=== PATIENT | female | born 1985 | race Caucasian/White ===

== ENCOUNTER 2025-04-09 20:37 | Observation (INO) ==
--- NOTE | 2025-04-09 21:45 | DR.HEADACH ---
HPI Time Seen Time Seen by Provider: 04/09/25 21:42 Primary Care Physician Primary Care Physician: ANNIE DOBBS HPI Comment HPI Comment: According to pt she has hx of high blood pressure. it's never below 140.takes clonidine 2x per day and labetalol once daily. Noticed numbness and tingling over right side of face and right upper ext started 1 hr ago .Has no weakness over the upper and lower ext .Here to have her checked to make sure she does not have stroke/tia Complaint/Symptoms Chief Complaint Doctors Comments: numbness over the face and right upper ext Chief Complaint:: PT AMBULATORY IN ED WITH C/O SEVERE HEADACHE SINCE LAST NIGHT AND VOMITING TODAY. STATES SHE HAD AN EPISODE OF NUMBNESS AND TINGLING ON RIGHT SIDE TODAY. COVID-19 Coronavirus risk:travel/contact w/high risk person: No Has patient experienced Coronavirus symptoms: No Reviewed Nurses Notes Reviewed: Yes Source History Provided: Patient Mode of Arrival Mode of Arrival: Ambulatory Timing Onset of Chief Complaint: 04/08/25 Duration Since Onset: Since Onset How lon Duration: Hours Location Headache Location: Temporal Quality Quality: Aching Severity Headache Severity: Moderate Context History of: None Prior Work Up: None Modifying Factors Improves With: Nothing Worsens: Nothing Associated Signs and Symptoms Associated Symptoms: None PMH PMH Past Medical History: Yes Past Medical History: Depression, Diabetes, Dyslipidemia, Migraines, GERD, Headaches, Hypertension, Hypothyroidism, Kidney Stones and Cancer Past Medical History Comment: KIDNEY CANCER Past Surgical History: Yes Surgical History: , RIGHT OF WAY MAN Surgery, Hysterectomy and Lithotripsy Past Surgical History Comment: RIGHT NEPHRECTOMY Family History History of Family Medical Conditions: Yes Family Medical History: Diabetes Mellitus, Cancer, CA, Coronary Artery Disease and Hypertension Social History Does patient currently use any type of tobacco product: No Have you used tobacco products in the last 12 months: No Type of Tobacco Use: None Does any household member use tobacco: No Alcohol Use: None Do you use any recreational Drugs:: No Lives With: Spouse Lives Where: Home Travel Risk Coronavirus risk:travel/contact w/high risk person: No Has patient experienced Coronavirus symptoms: No Infectious screening In the last 2 months have you had wt loss of >10#?: NO Have you had fever, night sweats or hemotysis?: No Have you traveled outside the country in the last 6 months?: No Isolation: Standard ROS Review of Systems Constitutional: No Symptoms Reported Eyes: No Symptoms Reported ENTM: No Symptoms Reported Respiratoy: No Symptoms Reported Cardiovascular: No Symptoms Reported Gastrointestinal/Abdominal: No Symptoms Reported Genitourinary: No Symptoms Reported Neurological: Headache, Paresthesia and Tingling Musculoskeletal: No Symptoms Reported Integumentary: No Symptoms Reported Hematologic/Lymphatic: No Symptoms Reported Endocrine: No Symptoms Reported PE Vital Signs Vitals: Vital Signs Temperature 98.2 F Pulse Rate 96 Respiratory Rate 19 Respiratory Rate 20 Blood Pressure 164/88 Blood Pressure 176/86 Blood Pressure 176/86 Blood Pressure 176/86 Blood Pressure 181/107 Blood Pressure 181/107 Blood Pressure 181/107 Blood Pressure 176/94 Blood Pressure 176/94 Blood Pressure 176/94 Blood Pressure 185/103 Blood Pressure 185/103 Blood Pressure 185/103 Blood Pressure 204/109 Blood Pressure 176/112 Blood Pressure 204/115 Blood Pressure 214/111 O2 Sat by Pulse Oximetry 98 Head Head Exam: Normal Inspection, Atraumatic and Normocephalic Eyes Eye exam: Normal Appearance, PERRL and EOMI ENT ENT Exam: Mucous Membranes Moist TM/Canal Exam: Bilateral: Normal Mouth Exam: Normal Inspection Neck Neck Exam: Normal Inspection, Full ROM and Trachea Midline Chest Chest Inspection: Normal Inspection and Symmetric Chest Wall Rise Respiratory Respiratory Exam: Normal Lung Sounds Bilat Respiratory Exam: Bilateral: Clear to Auscultation Cardiovascular Cardiovascular Exam: +S1 and +S2 Abdominal Exam Abdominal Exam: Normal Inspection, Normal Bowel Sounds and Soft Extremities Extremities Exam: Normal Inspection and Full ROM Other Exam Other Exam: cn 2-12 intact upper and lower ext tone and power symmterical reflexes 2+ plantar flexor bilaterally MDM Additional Information Obtained Additional Information Obtained From: Old Records Differential Diagnosis Differential Diagnosis: Considerations may include:: Other (tia,hypertensive Urgency ,headache ) COURSE Treatment Treatment: start stroke protocol ROR Labs Reviewed Laboratory Results Reviewed?: Yes 04/09/25 21:27 04/09/25 21:57 Laboratory: WBC 10.2 X10^3/uL (3.6-10.0) H 04/09/25 21:27 RBC 4.79 X10^6/uL (3.5-5.4) 04/09/25 21:27 Hgb 13.4 g/dL (12.0-16.0) 04/09/25 21:27 Hct 39.3 % (36.0-47.0) 04/09/25 21: MCV 82.1 fL (80.0-100.0) 04/09/25: MCH 28.1 pg (27.0-34.0) 04/09/25: MCHC 34.2 g/dL (33.0-35.0) 04/09/25: RDW 14.4 % (11.6-16.5) 04/09/25: Plt Count 327 X10^3/uL (150.0-450.0) 04/09/25 21: MPV 7.7 fL (7.4-11.0) 04/09/25: Neut % (Auto) 69.8 % (42.0-75.0) 04/09/25: Lymph % (Auto) 21.1 % (21.0-51.0) 04/09/25: [place] % (Auto) 6.6 % (0.0-13.0) 04/09/25: Eos % (Auto) 1.9 % (0.9-2.9) 04/09/25: Baso % (Auto) 0.6 % (0.2-1.0) 04/09/25: Neut # (Auto) 7.1 x10^3/uL (2.2-4.8) H 04/09/25: Lymph # (Auto) 2.2 X10^3/uL (1.3-2.9) 04/09/25: [place] # (Auto) 0.7 x10^3/uL (0.3-0.8) 04/09/25: Eos # (Auto) 0.2 x10^3/uL (0.0-0.2) 04/09/25: Baso # (Auto) 0.1 X10^3/uL (0.0-0.1) 04/09/25: Absolute Nucleated RBC 0.0 /100WBC 04/09/25: PT 13.3 SECONDS (11.8-14.3) 04/09/25: INR Target Range - 04/09/25 21: INR 1.00 (0.8-1.3) 04/09/25 21:27 APTT 25.1 SECONDS (22.9-36.5) 04/09/25 21:27 PTT Comment - 04/09/25 21:27 Fibrinogen 352 mg/dL (239-489) 04/09/25 21:27 Sodium 140 mmol/L (136-145) 04/09/25 21:57 Corrected Sodium 140 mmol/L (136-145) 04/09/25 21:57 Potassium 4.2 mmol/L (3.5-5.1) 04/09/25 21:57 Chloride 104 mmol/L (98-107) 04/09/25 21:57 Carbon Dioxide 28.0 mmol/L (21-32) 04/09/25 21:57 BUN 18 mg/dL (7-18) 04/09/25 21:57 Creatinine 1.16 mg/dL (0.55-1.02) H 04/09/25 21:57 Est GFR (MDRD) Af Amer > 60 (>60) 04/09/25 21:57 Est GFR (MDRD) Non-Af 55 (>60) L 04/09/25 21:57 Glucose 114 mg/dL (65-99) H 04/09/25 21:57 Calcium 8.8 mg/dL (8.5-10.1) 04/09/25 21:57 Corrected Calcium TNP 04/09/25 21:57 Total Bilirubin 0.40 mg/dL (0.2-1.0) 04/09/25 21:57 AST 11 Units/L (15-37) L 04/09/25 21:57 ALT 22 Units/L (12-78) 04/09/25 21:57 Alkaline Phosphatase 92 Units/L (46-116) 04/09/25 21:57 Creatine Kinase 50 Units/L (26-192) 04/09/25 21:57 Troponin I High Sens 7.0 ng/L (4.0-60.0) 04/09/25 21:57 Total Protein 8.0 g/dL (6.4-8.2) 04/09/25 21:57 Albumin 4.0 g/dL (3.4-5.0) 04/09/25 21:57 Globulin 4.0 g/dL (2.5-4.5) 04/09/25 21:57 Albumin/Globulin Ratio 1.0 Ratio (1.1-2.1) L 04/09/25 21:57 Triglycerides 223 mg/dL (0-150) H 04/09/25 21:57 Cholesterol 245 mg/dL (0-200) H 04/09/25 21:57 LDL Cholesterol, Calc 160 mg/dL (0-100) H 04/09/25 21:57 HDL Cholesterol 40 mg/dL (40-60) 04/09/25 21:57 Cholesterol/HDL Ratio 6.1 (0.0-5.0) H 04/09/25 21:57 Blood Type O POSITIVE 04/09/25 21:27 Blood Type O POSITIVE 04/09/25 21:27 Antibody Screen Negative 04/09/25 21:27 Opioid Opioid Risk Tool Age (Hardik box if 16-45): Yes History of Preadolescent Sexual Abuse: No Total: 1 Total Score Risk Category: Low Risk Copyright: [facility] predicting aberrant behaviors Discharge Plan Diagnosis Discharge Problem: Brain TIA, Hypertensive urgency, Headache, migraine Discharge Plan Patient Disposition: 09 ADMITTED INPATIENT Condition: Stable Prescriptions: No Action venlafaxine 150 mg capsule,extended release 24hr 150 mg PO QDAY labetalol 100 mg Tablet 100 mg PO BID Ozempic 1 mg/dose (4 mg/3 mL) Pen Injector 1 mg SUBCUT QWEEK Rx Instructions: TAKES ON THURSDAY clonidine HCl 0.1 mg Tablet 0.1 mg PO BID Health Concerns: Post Hospitalization: new medications and changes needed to prevent readmission or further decline. Pt educated and given instructions on all concerns. Plan of Treatment: Continue with present treatment and follow up plan. Pt is to keep follow up appointment as instructed and take medications as ordered. Orders to Discharge Patient Discharge Orders: Transfer (Routine); Ordered 04/09/25 Ordered By: Crow Peoples Follow ups/Referrals Follow ups/Referrals: Annie Dobbs [Primary Care Provider, Unknown] - 3 days Instructions Stand Alone Forms: Find Help Web Site, Post Hospital Follow Up Care Print Language: [place] ADDITIONAL NOTES Additional Notes Additional Notes: spoke with Dr Michel Neuro .CT neg CTA no acute finding.headache improved .bp less than 200 systolic after hydralazine systolic .Spoke with Dr Verdin agreed to have patient admitted fro monitoring over night bp ,MRI in am
[2025-04-09 21:56] LABS: BASOPHILS # (AUTO) 0.1 X10^3/uL (0.0-0.1); BASOPHILS % (AUTO) 0.6 % (0.2-1.0); EOSINOPHILS # (AUTO) 0.2 x10^3/uL (0.0-0.2); EOSINOPHILS % (AUTO) 1.9 % (0.9-2.9); HEMATOCRIT 39.3 % (36.0-47.0); HEMOGLOBIN 13.4 g/dL (12.0-16.0); LYMPHOCYTES # (AUTO) 2.2 X10^3/uL (1.3-2.9); LYMPHOCYTES % (AUTO) 21.1 % (21.0-51.0); MEAN CORPUSCULAR HEMOGLOBIN 28.1 pg (27.0-34.0); MEAN CORPUSCULAR HGB CONC 34.2 g/dL (33.0-35.0); MEAN CORPUSCULAR VOLUME 82.1 fL (80.0-100.0); MEAN PLATELET VOLUME 7.7 fL (7.4-11.0); MONOCYTES # (AUTO) 0.7 x10^3/uL (0.3-0.8); MONOCYTES % (AUTO) 6.6 % (0.0-13.0); NEUTROPHILS # (AUTO) 7.1 x10^3/uL (2.2-4.8); NEUTROPHILS % (AUTO) 69.8 % (42.0-75.0); PLATELET COUNT 327 X10^3/uL (150.0-450.0); RED BLOOD COUNT 4.79 X10^6/uL (3.5-5.4); RED CELL DISTRIBUTION WIDTH 14.4 % (11.6-16.5); WHITE BLOOD COUNT 10.2 X10^3/uL (3.6-10.0)
[2025-04-09] MEDS: ZOFRAN INJ 4 MG VIAL IVP ONE (21:58)
[2025-04-09] MEDS: APRESOLINE INJ 20 MG VIAL IVP ONE (21:59)
--- NOTE | 2025-04-09 22:08 | EKG ---
Test Reason : headache high blood pressure Blood Pressure : */* mmHG Vent. Rate : 84 BPM Atrial Rate : 84 BPM P-R Int : 138 ms QRS Dur : 88 ms QT Int : 398 ms P-R-T Axes : 43 2 46 degrees QTc Int : 470 ms Normal sinus rhythm Minimal voltage criteria for LVH, may be normal variant ( R in aVL ) Cannot rule out Anterior infarct , age undetermined Abnormal ECG No previous ECGs available Confirmed by Jameel Costello MD ([id number]) on 04/10/2025 9:32:40 AM Referred By: Confirmed By: Jameel Costello MD
--- NOTE | 2025-04-09 22:13 | TELESTROKE ---
[facility] Consult Date of Consult Date of Exam: 04/09/25 Time of Arrival to the ED: 20:37 Allergies Allergies Allergy/AdvReac Type Severity Reaction Status Date / Time amoxicillin Allergy Verified 04/09/25 20:59 ampicillin Allergy Verified 04/09/25 20:59 diphenhydramine (From Allergy Verified 04/09/25 20:59 Benadryl) Penicillins Allergy Verified 04/09/25 20:59 Vital Signs Vital Signs: Temp Pulse Resp BP Pulse Ox O2 Del Method 04/09/25 21:30 204/115 04/09/25 20:38 98.2 F 96 H 20 214/111 98 Room Air History of Present Illness History of Present Illness: [facility] Patient Name:Yuliya Vasquez Date of :1985 Identification Number: Date of Service:04/09/2025 21:23:26 Diagnosis:R51.9 - Headache, unspecified R20.2 - Paresthesia of skin Impression: 40 yo female With history of hypertension, hyperlipidemia, kidney cancer status post kidney resection, history of migraines who had a headache since last night around midnight. She did report some associated nausea and vomiting. Subsequently about an hour prior to arriving here she began noting some numbness of her right face which seemed to spread to her right arm and right leg. She denies history of prior focal neurologic symptoms with her migraine. On examination, she reports diminished sensation of her right face and neglects her right face with double simultaneous stimulation. The remainder of her exam is nonfocal, NIHSS = 2. CT head reveals no bleed or acute abnormalities. No thrombolytic treatment felt to be indicated given minor, nondisabling symptoms. We will proceed with stat CTA of head and neck, and involve MERISSA if there is LVO. Suspect possible stroke mimic with complex migraine although as she has never had focal neurologic symptoms in the past with migraine, rule out stroke. Our recommendations are outlined below. Recommendations: Stroke/Telemetry Floor Neuro Checks (Q2) Bedside Swallow Eval DVT Prophylaxis IV Fluids, Normal Saline Head of Bed 30 Degrees Euglycemia and Avoid Hyperthermia (PRN Acetaminophen) Initiate or continue Aspirin 325 MG daily Antihypertensives PRN if Blood pressure is greater than 220/120 or there is a concern for End organ damage/contraindications for permissive HTN. If blood pressure is greater than 220/120 give labetalol PO or IV or Vasotec IV with a goal of 15% reduction in BP during the first 24 hours. Stroke risk factor modification Stroke education. Suggest MRI brain to evaluate for possible CVA Sign Out: Discussed with Emergency Department Provider Metrics: Last Known Well: 04/09/2025 19:30:00 Dispatch Time: 04/09/2025 21:23:26 Arrival Time: 04/09/2025 20:37:00 Initial Response Time: 04/09/2025 21:26:35Symptoms: BUTLER since last night midnight , vomiting . 1 hour ago right face then arm , leg . Initial patient interaction: 04/09/2025 21:29:24 NIHSS Assessment Completed: 04/09/2025 21:34:07Patient is not a candidate for Thrombolytic. Thrombolytic Medical Decision: 04/09/2025 21:34:07Patient was not deemed candidate for Thrombolytic because of following reasons: Stroke severity too mild (non-disabling) . CT Head: I personally reviewed all the CT images that were available to me and it showed: No bleed or acute abnormality Primary Provider Notified of Diagnostic Impression and Management Plan on: 04/09/2025 22:09:07 History of Present Illness:Patient is a 40 year old Female. Patient was brought by private transportation with symptoms of BUTLER since last night midnight , vomiting . 1 hour ago right face then arm , leg . 40 yo female With history of hypertension, hyperlipidemia, kidney cancer status post kidney resection, history of migraines who had a headache since last night around midnight. She did report some associated nausea and vomiting. Subsequently about an hour prior to arriving here she began noting some numbness of her right face which seemed to spread to her right arm and right leg. She denies history of prior focal neurologic symptoms with her migraine. Past Medical History: Hypertension Diabetes Mellitus Hyperlipidemia Migraine Headaches There is no history of Coronary Artery Disease There is no history of Stroke Other PMH: CKD, Kidney CA, Thyroid Medications: No Anticoagulant use No Antiplatelet use Reviewed EMR for current medications Other Medications Pertinent To Assessment Include: Clonidine, labetolol, cholesterrol med , Ozempic Allergies: Reviewed Description:PCN, Benadryl Social History: Smoking: No Alcohol Use: No Drug Use: No Family History: There Is Family History Of:CAD, HTN, Cancer There is no family history of premature cerebrovascular disease pertinent to this consultation ROS : 14 Points Review of Systems was performed and was negative except mentioned in HPI. Past Surgical History: There Is No Surgical History Contributory To Todays Visit Examination: BP(214/11),Pulse(96), 1A: Level of Consciousness - Alert; keenly responsive+ 0 1B: Ask Month and Age - Both Questions Right+ 0 1C: Blink Eyes & Squeeze Hands - Performs Both Tasks+ 0 2: Test Horizontal Extraocular Movements - Normal+ 0 3: Test Visual Roper - No Visual Loss+ 0 4: Test Facial Palsy (Use Grimace if Obtunded) - Normal symmetry+ 0 5A: Test Left Arm Motor Drift - No Drift for 10 Seconds+ 0 5B: Test Right Arm Motor Drift - No Drift for 10 Seconds+ 0 6A: Test Left Leg Motor Drift - No Drift for 5 Seconds+ 0 6B: Test Right Leg Motor Drift - No Drift for 5 Seconds+ 0 7: Test Limb Ataxia (FNF/Heel-Almaguer) - No Ataxia+ 0 8: Test Sensation - Mild-Moderate Loss: Less Sharp/More Dull+ 1 9: Test Language/Aphasia - Normal; No aphasia+ 0 10: Test Dysarthria - Normal+ 0 11: Test Extinction/Inattention - Visual/tactile/auditory/spatial/personal inattention+ 1 NIHSS Score:2 NIHSS Free Text :Right face feels numb, neglects right face to double simultaneous stimulation Pre-Morbid Modified [place] Scale:0 Points = No symptoms at all Spoke with :Dr Galicia This consult was conducted in real time using interactive audio and video technology. Patient was informed of the technology being used for this visit and agreed to proceed. Patient located in hospital and provider located at home/office setting. Patient is being evaluated for possible acute neurologic impairment and high probability of imminent or life-threatening deterioration. I spent total of 47 minutes providing care to this patient, including time for face to face visit via telemedicine, review of medical records, imaging studies and discussion of findings with providers, the patient and/or family. Dr Juan Michel [facility] For Inpatient follow-up with [facility] physician please call [facility] at . As we are not an outpatient service for any post hospital discharge needs please contact the hospital for assistance. If you have any questions for the [facility] physicians or need to reconsult for clinical or diagnostic changes please contact us via [facility] at . Medical Decision Making 04/09/25 21:27 04/09/25 21:57 Labs: Laboratory Results - last 24 hr 04/09/25 21:27 WBC 10.2 H RBC 4.79 Hgb 13.4 Hct 39.3 MCV 82.1 MCH 28.1 MCHC 34.2 RDW 14.4 Plt Count 327 MPV 7.7 Neut % (Auto) 69.8 Lymph % (Auto) 21.1 [place] % (Auto) 6.6 Eos % (Auto) 1.9 Baso % (Auto) 0.6 Neut # (Auto) 7.1 H Lymph # (Auto) 2.2 [place] # (Auto) 0.7 Eos # (Auto) 0.2 Baso # (Auto) 0.1 Absolute Nucleated RBC 0.0 PT 13.3 INR Target Range - INR 1.00 APTT 25.1 PTT Comment - Fibrinogen 352
[2025-04-09 22:20] LABS: ALANINE AMINOTRANSFERASE 22 Units/L (12-78); ALKALINE PHOSPHATASE 92 Units/L (46-116); ASPARTATE AMINO TRANSFERASE 11 Units/L (15-37); BLOOD UREA NITROGEN 18 mg/dL (7-18); CALCIUM 8.8 mg/dL (8.5-10.1); CHLORIDE 104 mmol/L (98-107); CHOL/HDL RATIO 6.1 (0.0-5.0); CHOLESTEROL 245 mg/dL (0-200); COR NA(FOR HYPERGLY) 140 mmol/L (136-145); CREATINE KINASE 50 Units/L (26-192); CREATININE 1.16 mg/dL (0.55-1.02); GLUCOSE 114 mg/dL (65-99); HDL CHOLESTEROL 40 mg/dL (40-60); POTASSIUM 4.2 mmol/L (3.5-5.1); SODIUM 140 mmol/L (136-145); TRIGLYCERIDES 223 mg/dL (0-150); eGFR NON BLACK RACES 55 (>60)
--- NOTE | 2025-04-09 22:20 | CT ---
EXAM: BRAIN W/O CON HISTORY: PT AMBULATORY IN ED WITH C/O SEVERE HEADACHE SINCE LAST NIGHT AND VOMITING TODAY. STATES SHE HAD AN EPISODE OF NUMBNESS AND TINGLING ON RIGHT SIDE TODAY.; COMPARISON: October 26, 2024 TECHNIQUE: Axial non-contrast images of the head with coronal and sagittal reformats. Radiation dose: 893.84 mGy-cm total DLP FINDINGS: No abnormal areas of acute attenuation in the brain parenchyma. Steiner-white differentiation remains intact. No intracranial, extra-axial, fluid collection. No hemorrhage. No mass, mass effect or midline shift. No ventriculomegaly. No acute fracture. Sinuses are well aerated. Mastoid air cells are well aerated. Globes and intraorbital contents are unremarkable. IMPRESSION: No acute intracranial abnormality identified. THIS IS AN ELECTRONICALLY VERIFIED FINAL REPORT 04/09/2025 10:05 PM - Electronically signed by Robinson Salinas MD
--- NOTE | 2025-04-09 22:56 | RAD ---
EXAM: CHEST, 1 VIEW HISTORY: PT AMBULATORY IN ED WITH C/O SEVERE HEADACHE SINCE LAST NIGHT AND VOMITING TODAY. STATES SHE HAD AN EPISODE OF NUMBNESS AND TINGLING ON RIGHT SIDE TODAY.; COMPARISON: No relevant prior studies available. TECHNIQUE: Chest radiographic imaging, AP portable projection, 1 image FINDINGS: Mild cardiomegaly. No focal airspace disease. No pleural effusion. No pneumothorax. No acute osseous abnormality. IMPRESSION: No imaging findings of acute cardiopulmonary disease. THIS IS AN ELECTRONICALLY VERIFIED FINAL REPORT 04/09/2025 10:52 PM - Electronically signed by Robinson Salinas MD
[2025-04-09] MEDS: TORADOL 30 MG VIAL IVP ONE (22:59)
--- NOTE | 2025-04-09 23:15 | CT ---
EXAM: BRAIN CTA HISTORY: PT AMBULATORY IN ED WITH C/O SEVERE HEADACHE SINCE LAST NIGHT AND VOMITING TODAY. STATES SHE HAD AN EPISODE OF NUMBNESS AND TINGLING ON RIGHT SIDE TODAY.; COMPARISON: Noncontrast head CT from April 09, 2025 TECHNIQUE: Axial CT angiography of the head with 100 mL Omnipaque 350 intravenous contrast. Coronal, sagittal and MIP and/or 3D reconstructed images were created for further characterization by the technologist. Radiation dose: 1623.58 mGy-cm total DLP FINDINGS: Anterior Circulation: Right internal carotid artery: No clinically significant stenosis, occlusion or aneurysm. Right middle cerebral artery: No clinically significant stenosis, occlusion or aneurysm. Right anterior cerebral artery: No clinically significant stenosis, occlusion or aneurysm. Left internal carotid artery: No clinically significant stenosis, occlusion or aneurysm. Left middle cerebral artery: No clinically significant stenosis, occlusion or aneurysm. Left anterior cerebral artery: No clinically significant stenosis, occlusion or aneurysm. Posterior Circulation: Right vertebral artery: No clinically significant stenosis, occlusion or aneurysm. Left vertebral artery: No clinically significant stenosis, occlusion or aneurysm. Basilar artery: No clinically significant stenosis, occlusion or aneurysm. Right posterior cerebral artery: No clinically significant stenosis, occlusion or aneurysm. Left posterior cerebral artery: No clinically significant stenosis, occlusion or aneurysm. Venous: No filling defects in the dural venous sinuses. Brain: No abnormal areas of acute attenuation in the brain parenchyma. Bones/joints: No acute osseous abnormality. Soft tissues: Unremarkable. IMPRESSION: 1. No acute intracranial abnormality identified, specifically, no clinically significant stenosis, occlusion or aneurysm identified involving the intracranial arterial structures. 2. No evidence of dural venous thrombosis. THIS IS AN ELECTRONICALLY VERIFIED FINAL REPORT 04/09/2025 11:12 PM - Electronically signed by Robinson Salinas MD
--- NOTE | 2025-04-09 23:20 | CT ---
EXAM: CAROTID CTA HISTORY: PT AMBULATORY IN ED WITH C/O SEVERE HEADACHE SINCE LAST NIGHT AND VOMITING TODAY. STATES SHE HAD AN EPISODE OF NUMBNESS AND TINGLING ON RIGHT SIDE TODAY.; COMPARISON: None. TECHNIQUE: Axial CT angiography of the neck with 100 mL Omnipaque intravenous contrast. Coronal, sagittal and MIP and/or 3D reconstructed images were created for further characterization by the technologist. Radiation dose: 1623.58 mGy-cm total DLP FINDINGS: Right common carotid artery: No clinically significant stenosis, occlusion or dissection. Right internal carotid artery: No clinically significant stenosis of the extracranial segment. No dissection or occlusion. Right external carotid artery: No occlusion or clinically significant stenosis of the origin. Right vertebral artery: No clinically significant stenosis, occlusion or dissection. Left common carotid artery: No clinically significant stenosis, occlusion or dissection.. Left internal carotid artery: No clinically significant stenosis of the extracranial segment. No dissection or occlusion. Left external carotid artery: No occlusion or clinically significant stenosis of the origin. Left vertebral artery: No clinically significant stenosis. No dissection or occlusion. Bones/joints: No acute fracture. Soft tissues: Normal. No significant soft tissue swelling. Lungs: Imaged portion of the lungs are clear of focal airspace disease. IMPRESSION: No acute abnormality, specifically, no clinically significant stenosis, occlusion or dissection involving the arterial structures of the neck. REFERENCES: NASCET CRITERIA: The degree of internal carotid artery stenosis is based on NASCET criteria. Normal is no stenosis. Mild is less than 50% stenosis. Moderate is 50-69% stenosis. Severe is 70% to 99% stenosis. Total occlusion is no detectable patent lumen. THIS IS AN ELECTRONICALLY VERIFIED FINAL REPORT 04/09/2025 11:16 PM - Electronically signed by Robinson Salinas MD
[2025-04-10 01:04] VITALS: BMI 30.1
[2025-04-10] MEDS: ZOFRAN INJ 4 MG VIAL IVP PRN (02:08)
[2025-04-10] MEDS: ULTRAM PO PRN (02:21)
[2025-04-10 05:57] LABS: BASOPHILS % (AUTO) 0.4 % (0.2-1.0); EOSINOPHILS % (AUTO) 0.5 % (0.9-2.9); HEMATOCRIT 38.4 % (36.0-47.0); HEMOGLOBIN 13.3 g/dL (12.0-16.0); LYMPHOCYTES # (AUTO) 1.9 X10^3/uL (1.3-2.9); LYMPHOCYTES % (AUTO) 19.3 % (21.0-51.0); MEAN CORPUSCULAR HEMOGLOBIN 28.1 pg (27.0-34.0); MEAN CORPUSCULAR HGB CONC 34.5 g/dL (33.0-35.0); MEAN CORPUSCULAR VOLUME 81.6 fL (80.0-100.0); MEAN PLATELET VOLUME 7.6 fL (7.4-11.0); MONOCYTES # (AUTO) 0.4 x10^3/uL (0.3-0.8); MONOCYTES % (AUTO) 4.5 % (0.0-13.0); NEUTROPHILS # (AUTO) 7.5 x10^3/uL (2.2-4.8); NEUTROPHILS % (AUTO) 75.3 % (42.0-75.0); PLATELET COUNT 342 X10^3/uL (150.0-450.0); RED BLOOD COUNT 4.71 X10^6/uL (3.5-5.4); RED CELL DISTRIBUTION WIDTH 14.7 % (11.6-16.5)
[2025-04-10 06:11] LABS: ALANINE AMINOTRANSFERASE 22 Units/L (12-78); ALBUMIN 3.8 g/dL (3.4-5.0); ALKALINE PHOSPHATASE 89 Units/L (46-116); ASPARTATE AMINO TRANSFERASE 20 Units/L (15-37); BLOOD UREA NITROGEN 16 mg/dL (7-18); CALCIUM 8.9 mg/dL (8.5-10.1); CARBON DIOXIDE 26.8 mmol/L (21-32); CHLORIDE 103 mmol/L (98-107); COR NA(FOR HYPERGLY) 139 mmol/L (136-145); CREATININE 1.05 mg/dL (0.55-1.02); GLUCOSE 131 mg/dL (65-99); POTASSIUM 4.4 mmol/L (3.5-5.1); SODIUM 138 mmol/L (136-145); TOTAL PROTEIN 7.8 g/dL (6.4-8.2); eGFR NON BLACK RACES > 60 (>60)
[2025-04-10] MEDS: APRESOLINE INJ 20 MG VIAL ONE (06:56)
[2025-04-10] MEDS: ZOFRAN INJ 4 MG VIAL ONE ×2 (06:56)
[2025-04-10] MEDS: ULTRAM ONE (06:57)
[2025-04-10] MEDS: HYZAAR 50/12.5 MG PO SCH (08:44)
[2025-04-10] MEDS: EFFEXOR XR 150 MG CAP 24-HR PO SCH (08:44)
--- NOTE | 2025-04-10 10:33 | MRI ---
EXAM: BRAIN W/O CON HISTORY: HIGH BP/ POSS CVA ; COMPARISON: CT from yesterday TECHNIQUE: Multiplanar multi-sequence MRI of the brain was obtained utilizing standard departmental protocol. Sagittal and axial T1 weighted images were obtained. Axial T2 and flair weighted images were performed as well. Axial diffusion weighted and ADC trace mapping was performed. FINDINGS: The midline structures appear unremarkable. The evaluation of the brain parenchyma demonstrates no abnormal signal characteristics to suggest intraparenchymal mass or hemorrhage. No extra-axial fluid collections are observed. The ventricular system appears symmetric and nondilated. The CP angle is normal in its appearance without brainstem mass or evidence for acoustic neuroma. The flow voids on both T1 and T2 weighted imaging appear unremarkable. Evaluation of the diffusion weighted imaging does not demonstrate abnormal signal characteristics to suggest acute ischemic change. There is a single foc us of supratentorial white matter signal which is extremely nonspecific. The extracranial structures are unremarkable. IMPRESSION: Single focus of nonspecific white matter signal otherwise negative. THIS IS AN ELECTRONICALLY VERIFIED FINAL REPORT 04/10/2025 10:30 AM - Electronically signed by Krunal Ridley MD
[2025-04-10] MEDS: CATAPRES-TTS-2 TD SCH (12:40)
[2025-04-10] MEDS: APRESOLINE INJ 20 MG VIAL IVP ONE (14:59)
--- NOTE | 2025-04-10 16:44 | DR.H&P ---
H&P History & Physical for Day of: H&P Date: 04/10/25 Chief Complaint Chief Complaint: headache History of Present Illness History of Present Illness: Patient presented to the ER with worsening headache and elevated blood pressure and association with right sided facial tingling and numbness. ER workup was benign other than hypertensive urgency. CTA of head and neck were benign. Neurology was consulted and recommended admission with MRI. Overnight, remained hypertensive. Headache still present. Tingling resolved. MRI was negative for acute event. There was a small, supratentorial abnormality that they did not think was a tumor or stroke. She reports that she has been on multiple blood pressure medications with limited control over the years. Currently prescribed labetalol and as needed clonidine. ROS: 12 point ROS otherwise negative. PE: Well-developed, well-nourished, overweight female in no acute distress. Facial movements are grossly normal, hearing grossly intact, EOMI, head NCAT. Heart regular rate and rhythm with no murmur. Lungs are clear with strong speech. Belly is soft with bowel sounds present. Able to move all extremities with 5/5 strength throughout. Mood and affect are appropriate. Past Medical History Past Medical History: Depression, Diabetes, Dyslipidemia, Migraines, Hypertension, Kidney Stones and Cancer Past Surgical History Surgical History: , Hysterectomy and Lithotripsy Family History Family Medical History: Cancer, Coronary Artery Disease and Hypertension Social History Does patient currently use any type of tobacco product: No Have you used tobacco products in the last 12 months: No Type of Tobacco Use: None Does any household member use tobacco: No Alcohol Use: None Drug Use: None Medications Home Medications: Home Medications Medication Instructions Recorded Confirmed Type venlafaxine 150 mg 150 mg PO QDAY 02/08/2503/26 History capsule,extended release 24 hr clonidine HCl 0.1 mg tablet 0.1 mg PO BID 04/09/25 History labetalol 100 mg tablet 100 mg PO BID 04/09/2504/09 History semaglutide 1 mg/dose (4 mg/3 mL) 1 mg subcut QWEEK 04/09/25 History subcutaneous pen injector (Ozempic) Allergies Allergies Allergy/AdvReac Type Severity Reaction Status Date / Time amoxicillin Allergy Verified 04/09/25 20:59 ampicillin Allergy Verified 04/09/25 20:59 diphenhydramine (From Allergy Verified 04/09/25 20:59 Benadryl) Penicillins Allergy Verified 04/09/25 20:59 Labs 04/10/25 05:31 04/10/25 05:31 Labs: Laboratory WBC 10.0 X10^3/uL (3.6-10.0) 04/10/25 05:31 RBC 4.71 X10^6/uL (3.5-5.4) 04/10/25 05:31 Hgb 13.3 g/dL (12.0-16.0) 04/10/25 05:31 Hct 38.4 % (36.0-47.0) 04/10/25 05:31 MCV 81.6 fL (80.0-100.0) 04/10/25 05:31 MCH 28.1 pg (27.0-34.0) 04/10/25 05:31 MCHC 34.5 g/dL (33.0-35.0) 04/10/25 05:31 RDW 14.7 % (11.6-16.5) 04/10/25 05:31 Plt Count 342 X10^3/uL (150.0-450.0) 04/10/25 05:31 MPV 7.6 fL (7.4-11.0) 04/10/25 05:31 Neut % (Auto) 75.3 % (42.0-75.0) H 04/10/25 05:31 Lymph % (Auto) 19.3 % (21.0-51.0) L 04/10/25 05:31 [place] % (Auto) 4.5 % (0.0-13.0) 04/10/25 05:31 Eos % (Auto) 0.5 % (0.9-2.9) L 04/10/25 05:31 Baso % (Auto) 0.4 % (0.2-1.0) 04/10/25 05:31 Neut # (Auto) 7.5 x10^3/uL (2.2-4.8) H 04/10/25 05:31 Lymph # (Auto) 1.9 X10^3/uL (1.3-2.9) 04/10/25 05:31 [place] # (Auto) 0.4 x10^3/uL (0.3-0.8) 04/10/25 05:31 Eos # (Auto) 0.0 x10^3/uL (0.0-0.2) 04/10/25 05:31 Baso # (Auto) 0.0 X10^3/uL (0.0-0.1) 04/10/25 05:31 Absolute Nucleated RBC 0.0 /100WBC 04/10/25 05:31 PT 13.3 SECONDS (11.8-14.3) 04/09/25 21:27 INR Target Range - 04/09/25 21: INR 1.00 (0.8-1.3) 04/09/25 21:27 APTT 25.1 SECONDS (22.9-36.5) 04/09/25 21:27 PTT Comment - 04/09/25 21:27 Fibrinogen 352 mg/dL (239-489) 04/09/25 21:27 Sodium 138 mmol/L (136-145) 04/10/25 05:31 Corrected Sodium 139 mmol/L (136-145) 04/10/25 05:31 Potassium 4.4 mmol/L (3.5-5.1) 04/10/25 05:31 Chloride 103 mmol/L (98-107) 04/10/25 05:31 Carbon Dioxide 26.8 mmol/L (21-32) 04/10/25 05:31 BUN 16 mg/dL (7-18) 04/10/25 05:31 Creatinine 1.05 mg/dL (0.55-1.02) H 04/10/25 05:31 Est GFR (MDRD) Af Amer > 60 (>60) 04/10/25 05:31 Est GFR (MDRD) Non-Af > 60 (>60) 04/10/25 05:31 Glucose 131 mg/dL (65-99) H 04/10/25 05:31 POC Glucose (mg/dL) 124 mg/dL (65-99) H 04/10/25 05:35 Calcium 8.9 mg/dL (8.5-10.1) 04/10/25 05:31 Corrected Calcium TNP 04/10/25 05:31 Total Bilirubin 0.50 mg/dL (0.2-1.0) 04/10/25 05:31 AST 20 Units/L (15-37) 04/10/25 05:31 ALT 22 Units/L (12-78) 04/10/25 05:31 Alkaline Phosphatase 89 Units/L (46-116) 04/10/25 05:31 Creatine Kinase 50 Units/L (26-192) 04/09/25 21:57 Troponin I High Sens 7.0 ng/L (4.0-60.0) 04/09/25 21:57 Total Protein 7.8 g/dL (6.4-8.2) 04/10/25 05:31 Albumin 3.8 g/dL (3.4-5.0) 04/10/25 05:31 Globulin 4.0 g/dL (2.5-4.5) 04/10/25 05:31 Albumin/Globulin Ratio 1.0 Ratio (1.1-2.1) L 04/10/25 05:31 Triglycerides 223 mg/dL (0-150) H 04/09/25 21:57 Cholesterol 245 mg/dL (0-200) H 04/09/25 21:57 LDL Cholesterol, Calc 160 mg/dL (0-100) H 04/09/25 21:57 HDL Cholesterol 40 mg/dL (40-60) 04/09/25 21:57 Cholesterol/HDL Ratio 6.1 (0.0-5.0) H 04/09/25 21:57 Blood Type O POSITIVE 04/09/25 21:27 Blood Type O POSITIVE 04/09/25 21:27 Antibody Screen Negative 04/09/25 21:27 Physical Exam Vital Signs: Vital Signs Temperature 97.7 F Temperature 97.9 F Pulse Rate [Brachial] 85 Pulse Rate [Brachial] 82 Respiratory Rate 18 Respiratory Rate 20 Respiratory Rate 20 Respiratory Rate 19 Respiratory Rate 18 Blood Pressure [Left Arm] 181/99 Blood Pressure [Left Arm] 168/99 O2 Sat by Pulse Oximetry 96 O2 Sat by Pulse Oximetry 98 Assessment/Plan (1) Hypertensive urgency: Narrative Support Text: Start losartan with HCTZ twice daily. Clonidine patch would be the next addition. Use hydralazine and clonidine p.o. as needed. Status: Acute (2) Headache, migraine: Qualifiers: Intractability: intractable Migraine type: chronic migraine (15 or more days per month) with aura Status migrainosus presence: with status migrainosus Qualified Code(s): G43.E11 - Chronic migraine with aura, intractable, with status migrainosus Narrative Support Text: Try to get blood pressure down. Will avoid triptans and ergot's for now. Status: Acute (3) Brain TIA: Narrative Support Text: Questionable versus hypertensive urgency. Status: Acute
[2025-04-10] MEDS: PHENERGAN INJ 25 MG IM PRN (19:03)
[2025-04-11 01:33] LABS: BILIRUBIN,URINE NEGATIVE (NEGATIVE); BLOOD/HEMOGLOBIN,URINE NEGATIVE (NEGATIVE); GLUCOSE, URINE NEGATIVE (NEGATIVE); KETONES,URINE 1+ (NEGATIVE); LEUKOCYTE ESTERASE ,URINE NEGATIVE (NEGATIVE); NITRITES,URINE POSITIVE (NEGATIVE); PROTEIN,URINE 2+ (NEGATIVE); UROBILINOGEN,URINE NORMAL (NORMAL)
[2025-04-11 01:34] LABS: APPEARANCE,URINE SLIGHTLY HAZY (CLEAR); COLOR,URINE YELLOW (YELLOW)
[2025-04-11 01:44] LABS: BACTERIA,URINE 3+ /HPF (NEGATIVE); RBC,URINE 0-2 /HPF (0-3); SQUAMOUS EPITHELIAL CELL,UR MODERATE /HPF (NEGATIVE)
[2025-04-11] MEDS: ROCEPHIN VIAL 1 GRAM 1 G in NS 100 ML IV 100 ML IV SCH (03:02)
[2025-04-11] MEDS: NS 250 ML IV 250 ML IV ONE (03:06)
[2025-04-11 06:13] LABS: BASOPHILS # (AUTO) 0.1 X10^3/uL (0.0-0.1); BASOPHILS % (AUTO) 0.8 % (0.2-1.0); EOSINOPHILS # (AUTO) 0.2 x10^3/uL (0.0-0.2); EOSINOPHILS % (AUTO) 2.2 % (0.9-2.9); HEMOGLOBIN 13.3 g/dL (12.0-16.0); LYMPHOCYTES # (AUTO) 2.9 X10^3/uL (1.3-2.9); LYMPHOCYTES % (AUTO) 27.4 % (21.0-51.0); MEAN CORPUSCULAR HEMOGLOBIN 28.1 pg (27.0-34.0); MEAN CORPUSCULAR VOLUME 82.5 fL (80.0-100.0); MEAN PLATELET VOLUME 7.5 fL (7.4-11.0); MONOCYTES # (AUTO) 0.9 x10^3/uL (0.3-0.8); MONOCYTES % (AUTO) 8.6 % (0.0-13.0); NEUTROPHILS # (AUTO) 6.5 x10^3/uL (2.2-4.8); PLATELET COUNT 343 X10^3/uL (150.0-450.0); RED BLOOD COUNT 4.73 X10^6/uL (3.5-5.4); RED CELL DISTRIBUTION WIDTH 14.9 % (11.6-16.5); WHITE BLOOD COUNT 10.7 X10^3/uL (3.6-10.0)
[2025-04-11 06:22] LABS: ALANINE AMINOTRANSFERASE 23 Units/L (12-78); ALBUMIN 3.7 g/dL (3.4-5.0); ALKALINE PHOSPHATASE 81 Units/L (46-116); ASPARTATE AMINO TRANSFERASE 14 Units/L (15-37); BLOOD UREA NITROGEN 21 mg/dL (7-18); CARBON DIOXIDE 30.4 mmol/L (21-32); CHLORIDE 100 mmol/L (98-107); COR NA(FOR HYPERGLY) 139 mmol/L (136-145); CREATININE 1.36 mg/dL (0.55-1.02); GLUCOSE 119 mg/dL (65-99); POTASSIUM 3.9 mmol/L (3.5-5.1); SODIUM 139 mmol/L (136-145); TOTAL PROTEIN 7.6 g/dL (6.4-8.2); eGFR NON BLACK RACES 46 (>60)
[2025-04-11] MEDS: PROTONIX INJ 40 MG VIAL IVP ONE (10:00)
[2025-04-11] MEDS: COMPAZINE INJ IVP ONE (10:01)
[2025-04-11] MEDS: TORADOL 60 MG VIAL IVP ONE (10:01)
[2025-04-11 10:02] VITALS: RESP 20
[2025-04-11] MEDS: IMITREX TAB PO ONE (13:35)
[2025-04-11] MEDS: FIORICET TAB PO ONE (13:36)
[2025-04-11 15:41] VITALS: O2SAT 97
[2025-04-11] MEDS: TYLENOL 325 MG TAB PO PRN (16:53)
--- NOTE | 2025-04-11 16:56 | PCM.DCPLAN ---
DISCHARGE SUMMARY Admission Date Date of Admission: 04/09/25 Discharge Date Discharge Date: 04/11/25 Admission Diagnoses (1) Hypertensive urgency: Status: Acute (2) Headache, migraine: Status: Acute (3) Brain TIA: Status: Acute Discharge Medications Discharge Medications: Home Medication List clonidine HCl 0.1 mg tablet 0.1 mg PO BID 04/09/25 [History] labetalol 100 mg tablet 100 mg PO BID 04/09/25 [History] semaglutide 1 mg/dose (4 mg/3 mL) subcutaneous pen injector (Ozempic) 1 mg subcut QWEEK 04/09/25 [History] Prescriptions: Hospital Course Vital Signs: Vital Signs Temperature 98.4 F Pulse Rate [Brachial] 85 Respiratory Rate 20 Respiratory Rate 18 Respiratory Rate 18 Blood Pressure [Left Arm] 136/73 O2 Sat by Pulse Oximetry 96 Latest Lab Results: Laboratory Last Values WBC 10.7 X10^3/uL (3.6-10.0) H 04/11/25 05:52 RBC 4.73 X10^6/uL (3.5-5.4) 04/11/25 05:52 Hgb 13.3 g/dL (12.0-16.0) 04/11/25 05:52 Hct 39.0 % (36.0-47.0) 04/11/25 05:52 MCV 82.5 fL (80.0-100.0) 04/11/25 05:52 MCH 28.1 pg (27.0-34.0) 04/11/25 05:52 MCHC 34.0 g/dL (33.0-35.0) 04/11/25 05:52 RDW 14.9 % (11.6-16.5) 04/11/25 05:52 Plt Count 343 X10^3/uL (150.0-450.0) 04/11/25 05:52 MPV 7.5 fL (7.4-11.0) 04/11/25 05:52 Neut % (Auto) 61.0 % (42.0-75.0) 04/11/25 05:52 Lymph % (Auto) 27.4 % (21.0-51.0) 04/11/25 05:52 [place] % (Auto) 8.6 % (0.0-13.0) 04/11/25 05:52 Eos % (Auto) 2.2 % (0.9-2.9) 04/11/25 05:52 Baso % (Auto) 0.8 % (0.2-1.0) 04/11/25 05:52 Neut # (Auto) 6.5 x10^3/uL (2.2-4.8) H 04/11/25 05:52 Lymph # (Auto) 2.9 X10^3/uL (1.3-2.9) 04/11/25 05:52 [place] # (Auto) 0.9 x10^3/uL (0.3-0.8) H 04/11/25 05:52 Eos # (Auto) 0.2 x10^3/uL (0.0-0.2) 04/11/25 05:52 Baso # (Auto) 0.1 X10^3/uL (0.0-0.1) 04/11/25 05:52 Absolute Nucleated RBC 0.0 /100WBC 04/11/25 05:52 PT 13.3 SECONDS (11.8-14.3) 04/09/25 21:27 INR Target Range - 04/09/25 21:27 INR 1.00 (0.8-1.3) 04/09/25 21:27 APTT 25.1 SECONDS (22.9-36.5) 04/09/25 21:27 PTT Comment - 04/09/25 21:27 Fibrinogen 352 mg/dL (239-489) 04/09/25 21:27 Sodium 139 mmol/L (136-145) 04/11/25 05:52 Corrected Sodium 139 mmol/L (136-145) 04/11/25 05:52 Potassium 3.9 mmol/L (3.5-5.1) 04/11/25 05:52 Chloride 100 mmol/L (98-107) 04/11/25 05:52 Carbon Dioxide 30.4 mmol/L (21-32) 04/11/25 05:52 BUN 21 mg/dL (7-18) H 04/11/25 05:52 Creatinine 1.36 mg/dL (0.55-1.02) H 04/11/25 05:52 Est GFR (MDRD) Af Amer 55 (>60) L 04/11/25 05:52 Est GFR (MDRD) Non-Af 46 (>60) L 04/11/25 05:52 Glucose 119 mg/dL (65-99) H 04/11/25 05:52 POC Glucose (mg/dL) 124 mg/dL (65-99) H 04/10/25 05:35 Calcium 9.0 mg/dL (8.5-10.1) 04/11/25 05:52 Corrected Calcium TNP 04/11/25 05:52 Total Bilirubin 0.40 mg/dL (0.2-1.0) 04/11/25 05:52 AST 14 Units/L (15-37) L 04/11/25 05:52 ALT 23 Units/L (12-78) 04/11/25 05:52 Alkaline Phosphatase 81 Units/L (46-116) 04/11/25 05:52 Creatine Kinase 50 Units/L (26-192) 04/09/25 21:57 Troponin I High Sens 7.0 ng/L (4.0-60.0) 04/09/25 21:57 Total Protein 7.6 g/dL (6.4-8.2) 04/11/25 05:52 Albumin 3.7 g/dL (3.4-5.0) 04/11/25 05:52 Globulin 3.9 g/dL (2.5-4.5) 04/11/25 05:52 Albumin/Globulin Ratio 0.9 Ratio (1.1-2.1) L 04/11/25 05:52 Triglycerides 223 mg/dL (0-150) H 04/09/25 21:57 Cholesterol 245 mg/dL (0-200) H 04/09/25 21:57 LDL Cholesterol, Calc 160 mg/dL (0-100) H 04/09/25 21:57 HDL Cholesterol 40 mg/dL (40-60) 04/09/25 21:57 Cholesterol/HDL Ratio 6.1 (0.0-5.0) H 04/09/25 21:57 Specimen Type Clean catch urine 04/11/25 01:22 Urine Color Yellow (YELLOW) 04/11/25 01:22 Urine Appearance Slightly hazy (CLEAR) 04/11/25 01:22 Urine pH 6.0 (5.0 - 8.0) 04/11/25 01:22 Ur Specific [place] 1.020 (1.000-1.030) 04/11/25 01:22 Urine Protein 2+ (NEGATIVE) 04/11/25 01:22 Urine Glucose (UA) Negative (NEGATIVE) 04/11/25 01:22 Urine Ketones 1+ (NEGATIVE) 04/11/25 01:22 Urine Blood Negative (NEGATIVE) 04/11/25 01:22 Urine Nitrite Positive (NEGATIVE) 04/11/25 01: Urine Bilirubin Negative (NEGATIVE) 04/11/25 01:22 Urine Urobilinogen Normal (NORMAL) 04/11/25 01:22 Ur Leukocyte Esterase Negative (NEGATIVE) 04/11/25 01:22 Urine RBC 0-2 /HPF (0-3) 04/11/25 01: Urine WBC 5-10 /HPF (0-5) A 04/11/25 01:22 Ur Squamous Epith Cells Moderate /HPF (NEGATIVE) 04/11/25 01: Urine Bacteria 3+ /HPF (NEGATIVE) 04/11/25 01:22 Ur Culture Indicated? Yes/culture set up 04/11/25 01:22 Blood Type O POSITIVE 04/09/25 21:27 Blood Type O POSITIVE 04/09/25 21:27 Antibody Screen Negative 04/09/25 21:27 Hospital Course: Admitted due to concerns about TIA/stroke versus hypertensive emergency. MRI showing very small supratentorial spot that may be artifact. Otherwise no signs of stroke, tumor, mass, or encephalomalacia. Patient responded well to losartan with HCTZ and clonidine patch. Had a headache throughout admission with intermittent nausea. Does have a history of migraines but did not respond to Fioricet, Toradol, Compazine, Phenergan, or Imitrex. With improvement in patient's blood pressure and benign imaging, decision was made to discharge for follow-up with PCP and possible neurologist. Discharged in stable condition.
[2025-04-11 17:06] VITALS: BP 104/62; PULSE 77; TEMP 98
== END 2025-04-11 17:00 | disposition home or self-care (01) ==
LOC: MED/SURG 20:37 → ER 20:37 → MED/SURG 23:59
PROVIDERS: ADMIT Family Medicine; ATTEND Family Medicine
DX: E11.65 Type 2 diabetes mellitus with hyperglycemia; Z16.29 Resistance to other single specified antibiotic; Z90.5 Acquired absence of kidney; I16.0 Hypertensive urgency; R20.2 Paresthesia of skin; R94.4 Abnormal results of kidney function studies; E78.5 Hyperlipidemia, unspecified; Z16.11 Resistance to penicillins; G45.8 Other transient cerebral ischemic attacks and related syndromes; B96.29 Other Escherichia coli [E. coli] as the cause of diseases classified elsewhere; Z85.528 Personal history of other malignant neoplasm of kidney; I10 Essential (primary) hypertension; Z65.8 Other specified problems related to psychosocial circumstances; Z60.8 Other problems related to social environment; R94.31 Abnormal electrocardiogram [ECG] [EKG]; G43.E11 Chronic migraine with aura, intractable, with status migrainosus; Z16.23 Resistance to quinolones and fluoroquinolones